=== PATIENT | female | born 1985 | race Caucasian/White ===

== ENCOUNTER 2016-07-13 11:41 | Emergency (ER) | payer MEDICAID | END 2016-07-13 13:00 | disposition left against medical advice (07) | LOC: UCCORT 11:41 | DX: Z76.0 Encounter for issue of repeat prescription (principal); Z53.21 Procedure and treatment not carried out due to patient leaving prior to being seen by health care provider ==

== ENCOUNTER 2017-10-11 13:20 | Emergency (ER) | payer OTHER ==
[2017-10-11 14:13] VITALS: BP 125/86
[2017-10-11] MEDS ORDERED: Ketorolac INJ* 60 MG/2 ML VIAL IM ONE (14:25)
--- NOTE | 2017-10-11 14:27 | UC ---
Back Pain HPI - HPI Summary HPI Summary: Pt c/o gradual onset of right lower back pain that began gradually after she swiftly picked up 6 yo son and now has right lower back pain that radiates down posterior right leg to foot. Has c/o right foot tingling and numbness. - History of Current Complaint Chief Complaint: UCBackPain Stated Complaint: BACK PAIN Time Seen by Provider: 10/11/17 14:08 Hx Obtained From: Patient Hx Last Menstrual Period: last week ?: No Onset/Duration: Gradual Onset, Still Present Timing: Constant Severity Initially: Mild Severity Currently: Moderate Pain Intensity: 9 Back Pain: Is Discrete @ - right lower back, Radiates To - right foot Character: Dull, Aching, Burning Aggravating Factor(s): Movement Alleviating Factor(s): Rest, Position Associated Signs And Symptoms: Positive: Numbness, Tingling - Risk Factors AAA Risk Factors: Negative TAD Risk Factors: Negative Cauda Equina Risk Factors: Negative Epidural Abscess Risk Factors: Negative - Allergies/Home Medications Allergies/Adverse Reactions: Allergies Allergy/AdvReac Type Severity Reaction Status Date / Time No Known Allergies Allergy Verified 07/28/15 10:22 Home Medications: Home Medications ALPRAZolam [Xanax] 0.5 mg PO Q12HR 10/11/17 [History Confirmed 10/11/17] Bupropion XL* [Wellbutrin XL *] 300 mg PO DAILY 10/11/17 [History Confirmed ] hydrOXYzine HCL TAB* [Atarax 25 MG TAB*] 25 mg PO DAILY 10/11/17 [History Confirmed 10/11/17] PMH/Surg Hx/FS Hx/Imm Hx Previously Healthy: Yes - Surgical History Surgical History: Yes Surgery Procedure, Year, and Place: Tonsillectomy, 4 C-Sections. UMBILICAL HERNIA REPAIR. HYSTERECTOMY. URETERAL STENT - Family History Known Family History: Positive: Hypertension - Social History Occupation: Employed Full-time Lives: With Family Alcohol Use: Occasionally Substance Use Type: None Smoking Status (MU): Light Every Day Tobacco Smoker Type: Cigarettes Amount Used/How Often: SOCIAL Length of Time of Smoking/Using Tobacco: 10+ years Have You Smoked in the Last Year: Yes Review of Systems Constitutional: Negative Skin: Negative Eyes: Negative ENT: Negative Respiratory: Negative Cardiovascular: Negative Gastrointestinal: Negative Genitourinary: Negative Motor: Decreased ROM - low back Neurovascular: Negative Musculoskeletal: Arthralgia, Myalgia Neurological: Negative Psychological: Negative Is Patient Immunocompromised?: No All Other Systems Reviewed And Are Negative: Yes Physical Exam Triage Information Reviewed: Yes Appearance: Well-Appearing Vital Signs: Initial Vital Signs Temp 97.3 F 10/11/17 14:06 Pulse 86 10/11/17 14:06 Resp 16 10/11/17 14:06 BP 125/86 10/11/17 14:06 Pulse Ox 100 10/11/17 14:06 Vital Signs Reviewed: Yes Eye Exam: Normal ENT: Positive: Hearing grossly normal Respiratory: Positive: No respiratory distress Musculoskeletal Exam: Other Musculoskeletal: Positive: Other: - reporducible pain right lower back that radiates to posterior right lower extremity Neurological Exam: Normal Psychological Exam: Normal Skin Exam: Normal Back Pain Course/Dx - Differential Dx/Diagnosis Differential Diagnosis/HQI/PQRI: Herniated Disc, Strain, Sprain Provider Diagnoses: right side sciatica Discharge - Sign-Out/Discharge Documenting (check all that apply): Discharge/Admit/Transfer - Discharge Plan Condition: Stable Disposition: HOME Prescriptions: Cyclobenzaprine TAB* [Flexeril 10 MG TAB*] 10 mg PO TID PRN #12 tab PRN Reason: Pain Ibuprofen TAB* [Motrin TAB* 800 MG] 800 mg PO Q8H PRN #15 tab PRN Reason: Pain Patient Education Materials: Sciatica (ED), Lower Back Exercises (ED) Referrals: Josefina Little NP [Primary Care Provider] - If Needed - Billing Disposition and Condition Condition: STABLE Disposition: HOME
== END 2017-10-11 14:52 | disposition home or self-care (01) ==
LOC: UCCORT 13:20
DX: F17.210 Nicotine dependence, cigarettes, uncomplicated (principal); M54.31 Sciatica, right side
CPT/HCPCS: 96372; 99212; G0463; J1885